=== PATIENT | male | born 1950 | race Caucasian/White ===

== ENCOUNTER 2016-10-07 23:17 | Emergency (ER) | payer MEDICARE ==
[~2016-10-07] VITALS: Ht 188 cm; Wt 120.0 kg
[~2016-10-07 23:17] MED LIST: ASPI-650 PO; FOLI-17 PO; GLIP10TA13 PO; INSU100V8 SQ; LOSA100T6 PO; SIMV20TA PO; THIA100T6 PO
[2016-10-07 23:30] VITALS: BP 148/89
[2016-10-07] MEDS ORDERED: LIDOCAINE 1%, 20ML ONE (23:43)
[2016-10-08] MEDS ORDERED: LIDOCAINE 1%, 20ML INFIL ONE
== END 2016-10-08 00:54 | disposition left against medical advice (07) ==
LOC: ED 23:59
DX: S01.81XA Laceration without foreign body of other part of head, initial encounter (principal); E11.9 Type 2 diabetes mellitus without complications; I10 Essential (primary) hypertension; W19.XXXA Unspecified fall, initial encounter; Y93.89 Activity, other specified; Y99.8 Other external cause status; Y92.410 Unspecified street and highway as the place of occurrence of the external cause
CPT/HCPCS: 99283

== ENCOUNTER → 2019-08-13 | Outpatient (CLI) | payer MEDICARE ==
[~2019-08-13] MED LIST changes: +LOSA100T14 PO; -LOSA100T6 PO; -THIA100T6 PO; +THIA100T67 PO
== END | disposition home or self-care (01) ==
LOC: CFH 08:34
PROVIDERS: ATTEND Family Medicine
DX: R05 Cough (principal); I25.10 Atherosclerotic heart disease of native coronary artery without angina pectoris; M47.814 Spondylosis without myelopathy or radiculopathy, thoracic region; Z77.22 Contact with and (suspected) exposure to environmental tobacco smoke (acute) (chronic)
CPT/HCPCS: 71250